=== PATIENT | male | born 1955 | race Caucasian/White ===

== ENCOUNTER 2018-01-30 17:00 | Emergency (ER) | payer MEDICAID ==
[~2018-01-30] VITALS: Ht 180.3 cm; Wt 90.7 kg
[2018-01-30 17:00] VITALS: BP_SYST 113
[2018-01-30] MEDS ORDERED: FLUORESCEIN SODIUM 1 MG OPHTHALMIC STRIP OP ONE (17:01)
[2018-01-30] MEDS ORDERED: TETRACAINE HCL 0.5% OPHTHALMIC DROPS 15 ML OP ONE (17:01)
[2018-01-30 19:00] VITALS: BP_SYST 109
== END 2018-01-30 19:00 | disposition home or self-care (01) ==
LOC: SED 17:00
DX: S05.01XA Injury of conjunctiva and corneal abrasion without foreign body, right eye, initial encounter (principal); H16.203 Unspecified keratoconjunctivitis, bilateral; Z77.098 Contact with and (suspected) exposure to other hazardous, chiefly nonmedicinal, chemicals; I10 Essential (primary) hypertension; Z88.0 Allergy status to penicillin; X58.XXXA Exposure to other specified factors, initial encounter; Y93.H2 Activity, gardening and landscaping; Y92.89 Other specified places as the place of occurrence of the external cause; Y99.8 Other external cause status
CPT/HCPCS: 99283